=== PATIENT | female | born 1960 | race Caucasian/White ===

== ENCOUNTER → 2022-04-06 | Outpatient (CLI) | payer BC ==
--- NOTE | 2022-04-06 11:04 | US ---
EXAMINATION TYPE: US abdomen complete DATE OF EXAM: 04/06/2022 COMPARISON: NONE CLINICAL HISTORY: B15.9 HEPATITIS A. Cholecystectomy in 2015. TECHNIQUE: Multiple sonographic images of the abdomen are obtained. FINDINGS: EXAM MEASUREMENTS: Liver Length: 20.0 cm CBD: 0.41 cm Spleen: 8.9m Right Kidney: 11.3 x 4.5 x 3.8 cm Left Kidney: 10.9 x 5.4 x 4.2 cm DRAWER IN PLAIN LOOM NOTES: Exam is limited due to gas. Pancreas: Limited visibility. Liver: Appears enlarged and very heterogeneous. Multiple hypoechoic-isoechoic areas seen throughout the liver, largest appears to measure 3.6 x 3.5 x 2.7 cm within the right lobe. Gallbladder: Surgically absent. Evidence for sonographic Harding's sign: No. CBD: Portions seen appear wnl. Spleen: Appears wnl Right Kidney: No hydronephrosis or masses seen Left Kidney: Hypoechoic-possibly anechoic area seen laterally: 1.9 x 2.0 x 1.8 cm. This could be a c yst. Upper IVC: Appears wnl Abd Aorta: Appears wnl IMPRESSION: 1. Heterogenous appearance to the liver. Additional evaluation with contrast CT abdomen is recommende d for possible hepatic masses. Metastatic lesion should be considered. 2. Suspected cyst on left kidney.
== END | disposition home or self-care (01) ==
LOC: RADUSWWP 09:49
PROVIDERS: ATTEND Family Medicine
DX: K76.89 Other specified diseases of liver (principal)
CPT/HCPCS: 76700

== ENCOUNTER → 2022-04-19 | Outpatient (CLI) | payer BC ==
[2022-04-19 15:34] LABS: African American GFR (CKD) >90 (>60 ml/min/1.73 sqM); Blood Urea Nitrogen 9 mg/dL (7-17); Non-African American GFR(CKD) >90 (>60 ml/min/1.73 sqM)
--- NOTE | 2022-04-20 14:36 | CT ---
EXAMINATION TYPE: CT abdomen w con CT DLP: 794.60 mGycm, Automated exposure control for dose reduction was used. 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 poss liver lesions TECHNIQUE: Axial CT of the abdomen . Sagittal and coronal reformats were created on a separate works tation. Contrast used:70 mL of Isovue 300 with IV Contrast, Oral contrast used: with Oral Contrast FINDINGS: LOWER CHEST: Calcifications seen within left breast partially. Lipomatous hypertrophy of the interatr ial septum. ABDOMEN LIVER: Diffuse heterogenous attenuation of the liver with confluent areas of decreased attenuation. T he largest measuring at least 7.8 x 4.8 cm. A somewhat nodular contour to liver. GALLBLADDER AND BILE DUCTS: The gallbladder is surgically absent. PANCREAS: Unremarkable. SPLEEN: Unremarkable. ADRENAL GLANDS: Unremarkable. KIDNEYS AND URETERS: No evidence of hydronephrosis or renal calculus. Left renal cyst. STOMACH AND BOWEL: No evidence of bowel obstruction. PERITONEUM: No evidence of pneumoperitoneum or free fluid. VASCULATURE: No evidence of aortic aneurysm. MUSCULOSKELETAL: No acute osseous abnormalities L3 vertebral body lucent area anteriorly measuring up to 18 mm LYMPH NODES: No gross evidence for lymphadenopathy. SOFT TISSUE/ABDOMINAL WALL: Unremarkable IMPRESSION: 1. Multiple low-attenuation lesions throughout the liver suspicious for primary or secondary malignan cy. Given nodular contour to the liver correlate for of cirrhosis and history of malignancy. Addition al indeterminate L3 vertebral body lucent area is present suspicious. Tissue sampling and clinical co rrelation advised. 2. No evidence for lymphadenopathy.
== END | disposition home or self-care (01) ==
LOC: RADCTMAIN 14:45
PROVIDERS: ATTEND Family Medicine
DX: D37.6 Neoplasm of uncertain behavior of liver, gallbladder and bile ducts (principal)
CPT/HCPCS: 82565; 84520; 74160; 36415; Q9967